=== PATIENT | female | born 2000 | race American Indian/Alaskan Native ===

== ENCOUNTER 2019-05-13 16:03 | Emergency (ER) | payer SELFPAY ==
[2019-05-13 16:58] VITALS: BP 126/78
--- NOTE | 2019-05-13 16:58 | Event Note ---
ED Screening Note Date of service: 05/13/19 Time: 16:53 ED Screening Note: This is a 18 y.o. F. that presents to the ER with vaginal bleeding for 1 month. Reports miscarriage in February while on control. Seen by [facility] [employer] [facility] 4 days ago in [place] and prescribed control. Patient states she never filled RX. Reports cramping and vaginal bleeding. Denies CP, fever, dizziness, weakness, n/v, vaginal discharge, or back pain. This initial assessment/diagnostic orders/clinical plan/treatment(s) is/are subject to change based on patients health status, clinical progression and re- assessment by fellow clinical providers in the ED. Further treatment and workup at subsequent clinical providers discretion. Patient/guardian urged not to elope from the ED as their condition may be serious if not clinically assessed and managed. Initial orders include: Labs
[2019-05-13 17:38] LABS: Basophils % (Auto) 0.3 % (0.0-1.8); Eosinophils % (Auto) 1.1 % (0.0-4.3); Hematocrit 38.4 % (30.3-42.9); Hemoglobin 13.3 gm/dl (10.1-14.3); Lymphocytes # (Auto) 1.6 K/mm3 (1.2-5.4); Lymphocytes % (Auto) 48.6 % (13.4-35.0); Mean Corpuscular HGB Conc 35 % (30-34); Mean Corpuscular Volume 89 fl (79-97); Monocytes # (Auto) 0.3 K/mm3 (0.0-0.8); Platelet Count 240 K/mm3 (140-440); Red Blood Count 4.33 M/mm3 (3.65-5.03); Red Cell Distribution Width 13.1 % (13.2-15.2)
[2019-05-13 19:21] LABS: Bilirubin,Urine NEG (Negative); Blood,Urine LG (Negative); Color,Urine Yellow (Yellow); Mucus,Urine 2+ /HPF; Protein,Urine <15 mg/dL mg/dL (Negative); Urobilinogen,Urine < 2.0 mg/dL (<2.0)
== END 2019-05-13 18:12 ==
LOC: ED 16:03
DX: N93.9 Abnormal uterine and vaginal bleeding, unspecified (principal); Z53.21 Procedure and treatment not carried out due to patient leaving prior to being seen by health care provider
CPT/HCPCS: 36415; 81001; 84703; 85025; 87076; 87086; 87186

== ENCOUNTER 2020-09-28 10:23 | Emergency (ER) | payer MEDICAID ==
[2020-09-28 10:37] VITALS: BP 109/71
--- NOTE | 2020-09-28 11:49 | Emergency Department Report ---
ED General Adult HPI - General Chief complaint: Abdominal Pain Stated complaint: LIGHT HEADED/STOMACH PAIN Time Seen by Provider: 09/28/20 10:46 Source: patient Mode of arrival: Ambulatory Limitations: No Limitations - History of Present Illness Initial comments: 19-year-old female patient presents to the emergency department with complaints of nontraumatic frontal headache with associated nausea starting 3 days ago. No exacerbating or relieving factors identified. Patient does not have a history of migraines. She has taken Tylenol with limited relief. Last menstrual period was approximately a week and a half ago; she does admit to unprotected sexual intercourse since her menstrual cycle ended. Denies fever, chills, neck stiffness, rash, seizure, syncope, numbness, paresthesias, vomiting. Denies all other complaints at this time. - Related Data Previous Rx's Medication Instructions Recorded Last Taken Type Metoclopramide [Reglan] 10 mg PO TID #20 tab 09/28/20 Unknown Rx Naproxen 500 mg PO BID #20 tablet 09/28/20 Unknown Rx Sulfamethoxazole/Trimethoprim 1 each PO BID 5 Days tablet 09/28/20 Unknown Rx [Bactrim DS TAB] Allergies Allergy/AdvReac Type Severity Reaction Status Date / Time No Known Allergies Allergy Verified 09/28/20 10:36 ED Review of Systems ROS: Stated complaint: LIGHT HEADED/STOMACH PAIN Other details as noted in HPI Other: GENERAL: Negative for fever. CARDIOVASCULAR: Negative for chest pain. PULMONARY: Negative for shortness of breath. GASTROINTESTINAL: Positive for nausea. MUSCULOSKELETAL: Negative for back pain. NEUROLOGICAL: Positive for headache. INTEGUMENTARY: Negative for rash. ED Past Medical Hx - Past Medical History Previous Medical History?: No - Surgical History Past Surgical History?: No - Social History Smoking Status: Current Every Day Smoker Substance Use Type: None - Medications Home Medications: Home Medications Medication Instructions Recorded Confirmed Last Taken Type Metoclopramide [Reglan] 10 mg PO TID #20 tab 09/28/20 Unknown Rx Naproxen 500 mg PO BID #20 tablet 09/28/20 Unknown Rx Sulfamethoxazole/Trimethoprim 1 each PO BID 5 Days tablet 09/28/20 Unknown Rx [Bactrim DS TAB] ED Physical Exam - General Limitations: No Limitations - Other Other exam information: General: Awake and alert. No acute distress. Head: Atraumatic, normocephalic. Eyes: EOMI. Pupils are equal and round, reactive to light, no nystagmus. Normal sclera and conjunctiva. ENT: Oral mucosa is moist. Normal pharyngeal exam. Neck: Supple. No lymphadenopathy. Pulmonary: No respiratory distress. Clear to auscultation bilaterally. Cardiac: Regular rate and rhythm. Pulses are palpable and equal bilaterally. No lower extremity cyanosis or edema. Skin: Warm and dry. No rashes. Abdomen: Soft, non-tender, non-protuberant. No guarding, rigidity, or rebound. Bowel sounds are normal. No organomegaly or masses noted. Back: Normal alignment. No CVA tenderness. Extremities: Symmetrical. Full range of motion intact. Neurological: Alert and oriented, appropriately interactive, no focal deficits. Strength and sensation intact throughout. Ambulatory without assistance. Psych: Cooperative. Appropriate mood and affect. Speech is evenly metered. Thoughts are logically construed. ED Course Vital Signs 09/28/20 10:36 Temperature 98.6 F Pulse Rate 69 Respiratory 16 Rate Blood Pressure 109/71 O2 Sat by Pulse 99 Oximetry ED Medical Decision Making - Medical Decision Making Differential diagnosis including but not limited to: migraine headache, tension headache, cluster headache, preeclampsia, temporal arteritis, meningitis Patient presents with acute atraumatic headache. After a thorough history and physical examination, it has been determined that the patient meets all of the following criteria: age 15-40, neurologically intact, full range of motion of the neck without pain/stiffness, no loss of consciousness, onset of headache was within the last 14 days and did not occur during physical exertion, and the pain did not peak instantly. The patient has no history of any of the following conditions: head trauma/fall in the last 7 days, prior aneurysm, prior subarachnoid hemorrhage, known intracranial lesion, and has experienced no more than 3 headaches of the same character and intensity in the last 6 months. It has been explained to the patient that based on the [place] Subarachnoid Hemorrhage Rule, imaging is not indicated at this time. On reevaluation, patient remains stable. She is in no distress. She is carrying her child around the emergency department. Repeat neurological exam is nonfocal. She is afebrile, hemodynamically stable, ambulatory without assistance, tolerating oral intake without difficulty. test is negative. Urinalysis shows evidence of uncomplicated urinary tract infection; she will be started on Bactrim. She already has a follow-up appointment scheduled with her primary care provider in 2 days. Patient will be discharged home with appropriate analgesics and instructed to follow-up with her primary care provider as previously scheduled. Patient expressed understanding and is agreeable to plan of care. Strict return precautions provided. History, exam, diagnostic testing, and current condition do not suggest worrisome pathology to warrant further testing, emergent intervention, admission, or specialist evaluation at this point. Additional testing such as CT imaging or lumbar puncture is not indicated at this time, but should be considered if symptoms worsen or recur. Discussed findings, presumptive diagnosis, need for follow-up and specific signs/symptoms that should prompt immediate return to the emergency department. Instructions were explained in detail to the patient in addition to giving written discharge information. Patient expressed understanding and was given the opportunity to ask questions, all of which were satisfactorily answered prior to discharge home. Critical care attestation.: If time is entered above; I have spent that time in minutes in the direct care of this critically ill patient, excluding procedure time. ED Disposition Clinical Impression: Frontal headache Urinary tract infection Qualifiers: Urinary tract infection type: acute cystitis Hematuria presence: without hematuria Qualified Code(s): N30.00 - Acute cystitis without hematuria Disposition: TO HOME OR SELFCARE Is pt being admited?: No Does the pt Need Aspirin: No Condition: Stable Instructions: Urinary Tract Infection, Adult, [id number], Abdominal Pain (ED) Additional Instructions: Take Tylenol every 4 hours as needed for pain. Take Naprosyn with food twice daily as needed for pain. Take Reglan as needed for headache/nausea. Take Bactrim with food as directed. Rest. Drink plenty of fluids. Follow-up with your primary care provider on September 30 as previously scheduled. Return to the emergency department immediately for new or worsening symptoms. Prescriptions: Sulfamethoxazole/Trimethoprim [Bactrim DS TAB] 1 each PO BID 5 Days tablet Naproxen 500 mg PO BID #20 tablet Metoclopramide [Reglan] 10 mg PO TID #20 tab Referrals: [facility] [place] [Outside] - 3-5 Days [facility] [Outside] - 3-5 Days [facility] [Outside] - 3-5 Days Time of Disposition: 13:12
[2020-09-28 12:26] LABS: Bacteria,Urine 3+ /HPF (Negative); Bilirubin,Urine NEG (Negative); Blood,Urine NEG (Negative); Color,Urine Amber (Yellow); HCG Qualitative,Urine Negative (Negative); Mucus,Urine 3+ /HPF; Urobilinogen,Urine < 2.0 mg/dL (<2.0)
== END 2020-09-28 13:46 | disposition home or self-care (01) ==
LOC: ED 10:23
DX: N39.0 Urinary tract infection, site not specified (principal); R51.9 Headache, unspecified; F17.200 Nicotine dependence, unspecified, uncomplicated; Z79.899 Other long term (current) drug therapy
CPT/HCPCS: 81001; 81025; 87076; 87086; 87186

== ENCOUNTER 2021-08-06 12:55 | Emergency (ER) | payer SELFPAY ==
[2021-08-06 13:15] VITALS: BP 121/70
== END 2021-08-07 10:56 | disposition left against medical advice (07) ==
LOC: ED 12:55
DX: R10.9 Unspecified abdominal pain (principal); Z53.21 Procedure and treatment not carried out due to patient leaving prior to being seen by health care provider

== ENCOUNTER 2022-02-05 10:14 | Emergency (ER) | payer SELFPAY ==
--- NOTE | 2022-02-05 13:35 | Emergency Department Report ---
ED Rash HPI - HPI Chief Complaint: Skin Rash Stated Complaint: LEFT FOOT BREAKING OUT, BLEEDING BUTT Time Seen by Provider: 02/05/22 13:24 Duration: unknown Location: Lower Extremities (Sole of left foot) Suspected Cause: Unknown Rash Symptoms: Yes Itching, Yes Peeling, No Facial Swelling, No Tongue/Oral Swelling, No Breathing Difficulties, No Choking Sensation, No Wheezing/Dyspnea, No Blistering, No Fever, No Lightheaded Severity: moderate ED Review of Systems ROS: Stated complaint: LEFT FOOT BREAKING OUT, BLEEDING BUTT Other details as noted in HPI Comment: All other systems reviewed and negative Constitutional: denies: chills, fever Respiratory: denies: shortness of breath Cardiovascular: denies: chest pain, palpitations Gastrointestinal: denies: abdominal pain, nausea, vomiting Genitourinary: denies: urgency, dysuria Musculoskeletal: denies: back pain Skin: rash Psychiatric: denies: anxiety, depression ED Past Medical Hx - Social History Smoking Status: Never Smoker Substance Use Type: Marijuana - Medications Home Medications: Home Medications Medication Instructions Recorded Confirmed Last Taken Type Metoclopramide [Reglan] 10 mg PO TID #20 tab 09/28/20 Unknown Rx Naproxen 500 mg PO BID #20 tablet 09/28/20 Unknown Rx Sulfamethoxazole/Trimethoprim 1 each PO BID 5 Days tablet 09/28/20 Unknown Rx [Bactrim DS TAB] Clotrimazole 1% [Lotrimin 1%] 1 applic TP BID 14 Days #1 tube 02/05/22 Unknown Rx Rash Exam - Exam General: Vital signs noted. No distress. Alert and acting appropriately. HEENT: No Periorbital Edema, No Conjuctival Injection, No Chemosis, No Tongue Edema Lungs: Yes Good Air Exchange, No Wheezes, No Use of Accessory Muscles Heart: Yes Regular Skin: No Urticarial Rash, No Weeping, No Tenderness ED Course Vital Signs 02/05/22 10:21 Temperature 98.8 F Pulse Rate 57 L Respiratory 20 Rate Blood Pressure 115/59 [Left] O2 Sat by Pulse 100 Oximetry ED Medical Decision Making - Medical Decision Making 21-year-old female with no past medical history presents to the emergency department for evaluation of itchy rash to the sole of her left foot along with irregular period. She states that she does not know how long the rash has been to the bottom of her foot but states that she had the same problem a few years ago that was resolved with antifungal cream. She states that she had a period 2 weeks ago then started again yesterday. She denies any abdominal pain, dysuria, fever, or any other symptoms. Physical exam unremarkable. Patient be discharged home with Lotrimin cream to use for rash that is most likely fungal. She is advised to follow-up with [facility] for further evaluation of abnormal menstrual cycle. She verbalizes understanding of and agreement with plan of care. Critical care attestation.: If time is entered above; I have spent that time in minutes in the direct care of this critically ill patient, excluding procedure time. ED Disposition Clinical Impression: Rash, Irregular periods/menstrual cycles Disposition: HOME / SELF CARE / HOMELESS Is pt being admited?: No Does the pt Need Aspirin: No Condition: Stable Instructions: Menstruation, Rash, Adult, [id number] Additional Instructions: Take medications as prescribed. Follow-up with [facility] for further evaluation and management. Return to the emergency department as needed. Prescriptions: Clotrimazole 1% [Lotrimin 1%] 1 applic TP BID 14 Days #1 tube Referrals: KRYSTAL GUTIERREZ MD [Staff Physician] - 3-5 Days KATHARINE AMADOR MD [Staff Physician] - 3-5 Days Forms: Work/School Release Form(ED) Time of Disposition: 13:46 ED Female HPI - General Chief Complaint: Skin Rash Stated Complaint: LEFT FOOT BREAKING OUT, BLEEDING BUTT Time Seen by Provider: 02/05/22 13:24 - History of Present Illness Initial Comments: 21-year-old female with no past medical history presents to the emergency department for evaluation of itchy rash to the sole of her left foot along with irregular period. She states that she does not know how long the rash has been to the bottom of her foot but states that she had the same problem a few years ago that was resolved with antifungal cream. She states that she had a period 2 weeks ago then started again yesterday. She denies any abdominal pain, dysuria, fever, or any other symptoms. Timing/Duration: yesterday Prior abdominal problems: none Associated Symptoms: denies symptoms Allergies/Adverse Reactions: Allergies No Known Allergies Allergy (Verified 02/05/22 10:23) Home Medications: Ambulatory Orders Metoclopramide [Reglan] 10 mg PO TID #20 tab 09/28/20 Naproxen 500 mg PO BID #20 tablet 09/28/20 Sulfamethoxazole/Trimethoprim [Bactrim DS TAB] 1 each PO BID 5 Days tablet 09/28/20 Clotrimazole 1% [Lotrimin 1%] 1 applic TP BID 14 Days #1 tube 02/05/22 ED Female EXAM - Physical Exam General Appearance: WD/WN, no apparent distress Neck: NON Cardiovascular/Respiratory: bradycardia Gastrointestinal/Abdominal: normal bowel sounds, non tender Back Exam: normal inspection, no CVA tenderness, no vertebral tenderness Extremity: normal range of motion Skin Exam: rash (Dry scaly rash to the sole of left foot. No erythema or edema noted.) Lymphatic: no adenopathy
[2022-02-05 14:22] VITALS: BP 121/86
== END 2022-02-05 14:15 | disposition home or self-care (01) ==
LOC: ED 10:14
DX: R21 Rash and other nonspecific skin eruption (principal); N92.6 Irregular menstruation, unspecified
CPT/HCPCS: 99282